=== PATIENT | male | born 1980 | race Caucasian/White ===

== ENCOUNTER 2017-06-23 02:04 | Emergency (ER) | payer OTHER ==
[~2017-06-23] VITALS: Ht 185.4 cm; Wt 105.7 kg
[~2017-06-23 02:04] MED LIST: CYCL-331 PO; HYDR-79 PO; NAPR500T8 PO; OLME40TA12 PO; TRAM50TA PO
[2017-06-23] MEDS ORDERED: METOCLOPRAMIDE HCL 10 MG/2 ML VIAL. IV ONE (02:30)
[2017-06-23] MEDS ORDERED: KETOROLAC 30 MG/ML VIAL. IV ONE (02:30)
[2017-06-23] MEDS ORDERED: IV NORMAL SALINE 1,000ML 1,000 ML IV ONE (02:30)
--- NOTE | 2017-06-23 02:40 | EKG ---
[address] [address] Test Date: 2017-06-23 Test Time: 02:37:51 Pat Name: IGOR FINCH Department: Room: Gender: M Forest Technician: EVELYN : 1980 Requested By: EV GOMES Order Number: [id number] Reading MD: Measurements Intervals [place] Rate: 73 P: 30 [place]: 160 QRS: -6 QRSD: 94 T: 17 QT: 348 QTc: 387 Interpretive Statements SINUS RHYTHM LEFTWARD AXIS QRS(T) CONTOUR ABNORMALITY CONSIDER ANTEROLATERAL MYOCARDIAL DAMAGE POSSIBLY ABNORMAL ECG RI6.01 Unconfirmed report Compared to ECG 05/09/2014 09:35:08 No significant changes
[2017-06-23] MEDS ORDERED: METOCLOPRAMIDE HCL 10 MG/2 ML VIAL. ONE (02:42)
[2017-06-23] MEDS ORDERED: KETOROLAC 30 MG/ML VIAL. ONE (02:42)
[2017-06-23 02:49] LABS: BASO % 0 % (0-3); EOS # 0.1 x10^3/uL (0.0-0.7); EOS % 1 % (0-3); HEMATOCRIT 44.7 % (39.0-53.0); LYMPH % 24 % (24-48); MEAN CORPUSCULAR HEMOGLOBIN 26 pg (25-35); MEAN CORPUSCULAR HGB CONC 34 g/dL (31-37); MEAN CORPUSCULAR VOLUME 79 fL (79-100); MONO # 0.6 x10^3/uL (0.0-1.1); MONO % 7 % (0-9); NEUT # 5.7 x10^3uL (1.8-7.7); NEUT % 67 % (31-73); PLATELET COUNT 293 x10^3/uL (140-400); RED BLOOD COUNT 5.69 x10^6/uL (4.30-5.70); RED CELL DISTRIBUTION WIDTH 14.2 % (11.5-14.5); WHITE BLOOD COUNT 8.4 x10^3/uL (4.0-11.0)
[2017-06-23 02:55] LABS: BACTERIA,URINE 0 /HPF (0-FEW); BILIRUBIN,URINE NEG (NEG); CLARITY,URINE CLEAR; COLOR,URINE YELLOW; GLUCOSE,URINE NEG (NEG); NITRITE,URINE NEG (NEG); RBC,URINE 0 /HPF (0-2); SQUAMOUS EPITHELIAL CELL,UR OCC /LPF; UROBILINOGEN,URINE 0.2 mg/dL (0.2 mg/dL); WBC,URINE OCC /HPF (0-4)
[2017-06-23 03:07] LABS: ALBUMIN 4.2 g/dL (3.4-5.0); ALBUMIN/GLOBULIN RATIO 1.3 (1.0-1.7); CALCIUM 9.4 mg/dL (8.5-10.1); CREATININE 1.2 mg/dL (0.7-1.3); GFR 67.8; POTASSIUM 4.7 mmol/L (3.5-5.1); TOTAL BILIRUBIN 0.4 mg/dL (0.2-1.0); TOTAL PROTEIN 7.5 g/dL (6.4-8.2)
[2017-06-23 03:44] VITALS: BP 109/63
--- NOTE | 2017-06-23 03:48 | PHYS DOC ---
Past History Past Medical History: Diabetes, Hypertension Past Surgical History: Appendectomy Smoking: Chew Alcohol Use: None Drug Use: None Adult General Chief Complaint Chief Complaint: HEADACHE HPI HPI Patient is a 36-year-old gentleman who has no past medical history presents here today secondary to feeling dizzy and having headache for approximately 2 days now. Patient denies any history of liver kidney or lung problems.. Patient reports he does have a history of hypertension for which she is currently on antihypertensive medication for. Patient reports that he does have a history of diabetes in the past however he is no longer requiring any medications. Patient denies any other symptomatology. Patient has any fevers shakes chills nausea vomiting diarrhea chest pain shortness of breath cough cold rhinorrhea abdominal pain dysuria frequency urgency. Patient has any double vision. Patient denies any weakness in his upper or lower extremities. Patient denies any slurring his speech. Patient denies any ear pain or ringing in his ear. Patient denies any sore throat. Patient denies any URI symptoms. 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 Patient reports he has not been working any more than usual. Patient reports no difficulty with and ambulating. Patient reports he feels dizzy and the room is spinning with him at times. Review of systems: Constitutional: Denies fever or chills Eyes: Denies change in visual acuity, redness, or eye pain HENT: Denies nasal congestion or sore throat Respiratory: Denies cough or shortness of breath All other systems were reviewed and found to be within normal limits, except as documented in this note. Physical exam: Constitutional: Well developed, well nourished, no acute distress, non-toxic appearance. HENT: Normocephalic, atraumatic, bilateral external ears normal, nose normal. Eyes: PERRLA, EOMI, conjunctiva normal, no discharge. Neck: Normal range of motion, no tenderness, supple, no stridor. Cardiovascular: Heart rate regular rhythm, Lungs & Thorax: Bilateral breath sounds clear to auscultation Abdomen: No abdominal distention. Skin: Warm, dry, no erythema, no rash. Back: Normal spinal curvature Extremities: No tenderness, no cyanosis, no clubbing, ROM intact, no edema. Neurologic: Alert and oriented X 3, normal motor function, normal sensory function, no focal deficits noted. Patient has normal Romberg. Patient has no nystagmus. Patient's normal finger to nose. Patient has normal heel-to-toe ambulation. Patient is completely neurologically intact. Patient's TMs were within normal limits. There was no bulging. Patient's oropharynx is clear. Psychologic: Affect normal, judgement normal, mood normal. EKG as interpreted by ER physician reveals: Normal sinus rhythm at a heart rate of 73. Patient has nonspecific ST-T wave abnormalities. No evidence of ischemia. I disagree with EKG interpretation to consider anterolateral myocardial damage. Patient has good R-wave progression. Labs reviewed: Assessment and plan: 1. 36-year-old gentleman who presents to the ER today secondary to dizziness. Patient also has had a headache. Patient reports she's had headaches in the past and this is not unusual for him. Patient reports that the dizziness is unusual for him. Patient reports his dizziness is intermittent in nature. Patient denies any cardiac symptoms pathology. Patient denies any GI symptoms. Patient denies any melena or bright blood per rectum. Patient has any exertional angina. 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 Patient's ER workup is been unremarkable. Patient be given a liter of normal saline as well as Toradol and Reglan and reports his headache is completely resolved. Patient reports that his dizziness is much better and no longer has sensation that he is falling. Patient's ER workup is been unremarkable. I have discussed this with the patient however have discussed with him the need for further evaluation by his primary care physician including referrals the symptoms should persist. Given that this headache is not a new headache in association his headache pattern I do not think a CT scan is indicated at this time would not be beneficial. Risk and benefit stratification would lead me to not order a CT scan at this time given the risks involved and the low yield. Patient is discharged home in stable condition with strict return precautions discussed with the patient and strict follow-up with his primary care physician discussed. Current Medications Current Medications Current Medications Medications (Trade) Dose Ordered Sig/Jyoti Start Time Stop Time Status Last Admin Dose Admin Ketorolac Tromethamine (Toradol) 30 mg 1X ONCE 06/23/17 02:30 06/23/17 02:31 UNV 06/23/17 02:44 30 MG Metoclopramide HCl (Reglan Vial) 10 mg 1X ONCE 06/23/17 02:30 06/23/17 02:31 UNV 06/23/17 02:44 10 MG Sodium Chloride 1,000 ml @ 1,000 mls/hr 1X ONCE 06/23/17 02:30 06/23/17 03:29 UNV 06/23/17 02:45 1,000 MLS/HR Allergies Allergies Allergies Coded Allergies Type Severity Reaction Last Updated Verified Penicillins Allergy Intermediate HIVES 05/09/14 Yes Current Patient Data Vital Signs Vital Signs Date Time Temp Pulse Resp B/P (MAP) Pulse Ox O2 Delivery O2 Flow Rate FiO2 06/23/17 02:04 98.3 89 18 99 Room Air Lab Results Laboratory Tests Test 06/23/17 02:15 06/23/17 02:33 Urine Collection Type Unknown Urine Color Yellow Urine Clarity Clear Urine pH 5.5 Urine Specific [place] 1.020 Urine Protein Neg (NEG-TRACE) Urine Glucose (UA) Neg mg/dL (NEG) Urine Ketones (Stick) 15 mg/dL (NEG) Urine Blood Neg (NEG) Urine Nitrite Neg (NEG) Urine Bilirubin Neg (NEG) Urine Urobilinogen Dipstick 0.2 mg/dL (0.2 mg/dL) Urine Leukocyte Esterase Neg (NEG) Urine RBC 0 /HPF (0-2) Urine WBC Occ /HPF (0-4) Urine Squamous Epithelial Cells Occ /LPF Urine Bacteria 0 /HPF (0-FEW) White Blood Count 8.4 x10^3/uL (4.0-11.0) Red Blood Count 5.69 x10^6/uL (4.30-5.70) Hemoglobin 15.0 g/dL (13.0-17.5) Hematocrit 44.7 % (39.0-53.0) Mean Corpuscular Volume 79 fL (79-100) Mean Corpuscular Hemoglobin 26 pg (25-35) Mean Corpuscular Hemoglobin Concent 34 g/dL (31-37) Red Cell Distribution Width 14.2 % (11.5-14.5) Platelet Count 293 x10^3/uL (140-400) Neutrophils (%) (Auto) 67 % (31-73) Lymphocytes (%) (Auto) 24 % (24-48) Monocytes (%) (Auto) 7 % (0-9) Eosinophils (%) (Auto) 1 % (0-3) Basophils (%) (Auto) 0 % (0-3) Neutrophils # (Auto) 5.7 x10^3uL (1.8-7.7) Lymphocytes # (Auto) 2.0 x10^3/uL (1.0-4.8) Monocytes # (Auto) 0.6 x10^3/uL (0.0-1.1) Eosinophils # (Auto) 0.1 x10^3/uL (0.0-0.7) Basophils # (Auto) 0.0 x10^3/uL (0.0-0.2) Sodium Level 140 mmol/L (136-145) Potassium Level 4.7 mmol/L (3.5-5.1) Chloride Level 104 mmol/L (98-107) Carbon Dioxide Level 29 mmol/L (21-32) Anion Gap 7 (6-14) Blood Urea Nitrogen 10 mg/dL (8-26) Creatinine 1.2 mg/dL (0.7-1.3) Estimated GFR (Cockcroft-Gault) 67.8 BUN/Creatinine Ratio 8 (6-20) Glucose Level 124 mg/dL (70-99) H Calcium Level 9.4 mg/dL (8.5-10.1) Total Bilirubin 0.4 mg/dL (0.2-1.0) Aspartate Amino Transferase (AST) 15 U/L (15-37) Alanine Aminotransferase (ALT) 39 U/L (16-63) Alkaline Phosphatase 95 U/L (46-116) UP-Qsu-K-Type Natriuretic Peptide 6 pg/mL (0-124) Total Protein 7.5 g/dL (6.4-8.2) Albumin 4.2 g/dL (3.4-5.0) Albumin/Globulin Ratio 1.3 (1.0-1.7) EKG EKG [] Radiology/Procedures Radiology/Procedures [] Course & Med Decision Making Course & Med Decision Making Pertinent Labs and Imaging studies reviewed. (See chart for details) [] Dragon Disclaimer Dragon Disclaimer This electronic medical record was generated, in whole or in part, using a voice recognition dictation system. Departure Departure: Impression: Primary Impression: Dizziness Additional Impression: Headache Disposition: 01 HOME, SELF-CARE Condition: IMPROVED Referrals: JIMENA LIN MD (PCP) Patient Instructions: Dehydration, Adult, Dizziness, General Headache Without Cause Problem Qualifiers EV GOMES MD Jun 23, 2017 03:48
== END 2017-06-23 04:00 | disposition home or self-care (01) ==
LOC: ER 02:04
DX: R42 Dizziness and giddiness (principal); R51 Headache; E11.9 Type 2 diabetes mellitus without complications; I10 Essential (primary) hypertension; F17.220 Nicotine dependence, chewing tobacco, uncomplicated; Z88.0 Allergy status to penicillin
CPT/HCPCS: 36415; 80053; 81001; 83880; 84484; 85025; 93005; 96361; 96374; 96375; 99285; J1885; J2765; J7030